=== PATIENT | male | born 1990 | race Two or more races ===

== ENCOUNTER 2016-08-22 17:16 | Emergency (ER) | payer MEDICAID, OTHER ==
[~2016-08-22] VITALS: Ht 170.2 cm; Wt 83.0 kg
[2016-08-22 17:31] VITALS: BP 140/88
[2016-08-22] MEDS ORDERED: cefTRIAXone W LIDOCAINE 1 GM IM IM ONE (19:15)
[2016-08-22] MEDS ORDERED: cefTRIAXone SOD 1,000 MG VL IM ONE (19:30)
[2016-08-22] MEDS ORDERED: LIDOCAINE 1% HCL (LOCAL ANESTH.) INJ 20ML MDV XX ONE (19:30)
== END 2016-08-22 19:46 | disposition home or self-care (01) ==
LOC: ER 17:22
DX: R36.9 Urethral discharge, unspecified (principal); F17.210 Nicotine dependence, cigarettes, uncomplicated
CPT/HCPCS: 96372; 99283; J2001; J0696

== ENCOUNTER 2016-10-01 18:23 | Emergency (ER) | payer MEDICAID ==
[~2016-10-01] VITALS: Ht 180.3 cm; Wt 86.2 kg
[2016-10-01 19:59] LABS: Urine Bilirubin Negative (Negative); Urine Blood TRACE /uL (Negative); Urine Color Yellow (Yellow); Urine Glucose Normal (Normal); Urine Ketone Negative (Negative); Urine Mucus FEW (None Seen); Urine Nitrite Negative (Negative); Urine RBC 2 /hpf (0 - 3); Urine Urobilinogen Normal (Negative); Urine pH 5.5 (5.0-8.0)
[2016-10-01 21:34] VITALS: BP 146/97
== END 2016-10-01 22:01 | disposition home or self-care (01) ==
LOC: ER 18:26
DX: A64 Unspecified sexually transmitted disease (principal)
CPT/HCPCS: 81001

== ENCOUNTER 2016-10-03 17:17 | Emergency (ER) | payer MEDICAID ==
[~2016-10-03] VITALS: Ht 182.9 cm; Wt 82.6 kg
[2016-10-03 18:55] VITALS: BP 147/89
[2016-10-03] MEDS ORDERED: cefTRIAXone SOD 1,000 MG VL ONE (19:06)
[2016-10-03] MEDS ORDERED: cefTRIAXone SOD 1,000 MG VL IM ONE (19:15)
== END 2016-10-03 19:40 | disposition home or self-care (01) ==
LOC: ER 17:20
DX: N34.2 Other urethritis (principal); F17.210 Nicotine dependence, cigarettes, uncomplicated; Z90.89 Acquired absence of other organs
CPT/HCPCS: 96372; 99283; J0696

== ENCOUNTER → 2019-07-14 | Emergency (ER) | payer MEDICAID ==
[~2019-07-14] VITALS: Ht 182.9 cm; Wt 86.2 kg
[~2019-07-14] MED LIST: EPINEPHrine HCL 1 MG/1 ML AMP SC ONE; SODIUM CHLORIDE 0.9% 1,000 ML IV ONE; diphenhdrAMINE HCL 50 MG/1 ML VL IV ONE; methylPREDNISolone SOD SUCC 125 MG/2 ML VL IV ONE
[2019-07-14 01:58] VITALS: BP 136/62
== END | disposition home or self-care (01) ==
LOC: ER 00:34
DX: T78.40XA Allergy, unspecified, initial encounter (principal); X58.XXXA Exposure to other specified factors, initial encounter
CPT/HCPCS: 93005; 96372; 96374; 96375; 99284; J0171; J1200; J2930; J7030

== ENCOUNTER 2019-07-18 14:54 | Emergency (ER) | payer MEDICAID ==
[~2019-07-18] VITALS: Ht 182.9 cm; Wt 86.2 kg
[2019-07-18] MEDS ORDERED: methylPREDNISolone SOD SUCC 125 MG/2 ML VL IM ONE (17:30)
[2019-07-18 17:48] VITALS: BP 141/85
== END 2019-07-18 18:11 | disposition home or self-care (01) ==
LOC: ER 14:54
DX: T78.40XA Allergy, unspecified, initial encounter (principal); X58.XXXA Exposure to other specified factors, initial encounter
CPT/HCPCS: 96372; 99283; J2930

== ENCOUNTER 2023-05-27 21:55 | Emergency (ER) | payer MEDICAID, OTHER ==
[~2023-05-27] VITALS: Ht 180.3 cm; Wt 192.0 kg
[2023-05-28] MEDS: IBUPROFEN 800 MG TAB PO ONE (00:27)
[2023-05-28] MEDS: ACETAMINOPHEN/CODEINE#3 (300/30mg) TAB PO ONE (00:34)
[2023-05-28] MEDS: ONDANSETRON ODT 4 MG TAB PO ONE (00:35)
[2023-05-28] MEDS ORDERED: HYDR-4902 PO (01:18)
[2023-05-28] MEDS ORDERED: CIPR1SUS8 OT (01:18)
[2023-05-28 02:10] VITALS: TEMP 98.9; O2SAT 96
[2023-05-28] MEDS: cefTRIAXone SOD 1,000 MG VL IM ONE (02:14)
[2023-05-28] MEDS: MORPHINE SULFATE INJ 2 MG/ml SYRG IM ONE (02:16)
[2023-05-28 02:45] VITALS: BP 145/77; PULSE 85; RESP 16
== END 2023-05-28 02:53 | disposition home or self-care (01) ==
LOC: ER 21:55
DX: H66.91 Otitis media, unspecified, right ear (principal); F17.210 Nicotine dependence, cigarettes, uncomplicated; Z90.89 Acquired absence of other organs; Z79.899 Other long term (current) drug therapy
CPT/HCPCS: 96372; 99284; J0696; J2270; Q0162; 93005

== ENCOUNTER 2023-06-11 15:16 | Emergency (ER) | payer OTHER ==
[~2023-06-11] VITALS: Ht 180.3 cm; Wt 85.2 kg
[~2023-06-11 15:16] MED LIST changes: +CIPR1SUS8 OT; -EPINEPHrine HCL 1 MG/1 ML AMP SC ONE; +HYDR-4902 PO; -SODIUM CHLORIDE 0.9% 1,000 ML IV ONE; -diphenhdrAMINE HCL 50 MG/1 ML VL IV ONE; -methylPREDNISolone SOD SUCC 125 MG/2 ML VL IV ONE
[2023-06-11] MEDS: KETOROLAC TROMETH 60MG/2ML VIAL IM ONE (19:56)
[2023-06-11] MEDS: ONDANSETRON ODT 4 MG TAB PO ONE (19:57)
[2023-06-11 20:06] LABS: Basophils # (auto) 0 10 ^3/uL (0-0.2); Basophils % (auto) 0.6 % (0.0-2.0); Eosinophils # (auto) 0.2 10 ^3/uL (0-0.8); Eosinophils % (auto) 2.4 % (0.0-7.0); Hematocrit 43.4 % (41.0-53.0); Hemoglobin 14.9 g/dL (13.5-17.5); Lymphocytes % (auto) 35.4 % (10.0-50.0); Mean Corpuscular Hgb Conc. 34.4 g/dL (32.0-36.0); Mean Corpuscular Volume 87.4 fL (80.0-100.0); Monocytes # (auto) 0.6 10 ^3/uL (0-1.3); Neutrophils # (auto) 4.7 10 ^3/uL (1.6-8.6); Neutrophils % (auto) 54.6 % (37.0-80.0); Nucleated Red Blood Cells % 0.1 %; Red Blood Cells 4.96 10^6/uL (4.5-5.90); White Blood Cell 8.6 10^3/uL (4.4-10.8)
[2023-06-11 20:15] LABS: Chloride 104 mmol/L (98-107); Potassium 3.9 mmol/L (3.5-5.1); Sodium 137 mmol/L (136-145)
[2023-06-11 20:16] LABS: Anion Gap 8 (5-15); Carbon Dioxide 25 mmol/L (20-30)
[2023-06-11 20:17] LABS: Calcium 9.6 mg/dL (8.5-10.1)
[2023-06-11 20:21] LABS: BUN/Creatinine Ratio 14.5 (10.0-20.0); Blood Urea Nitrogen 12 mg/dL (9-23); Glucose 94 mg/dL (74-106)
[2023-06-11] MEDS ORDERED: IBUP-1456 PO (21:51)
[2023-06-11] MEDS ORDERED: PRED20TA2 PO (21:51)
[2023-06-11] MEDS ORDERED: CLIN1CAP70 PO (21:51)
[2023-06-11] MEDS ORDERED: ZOFR4T PO (21:52)
[2023-06-11] MEDS: cefTRIAXone SOD 1,000 MG VL IM ONE (22:00)
[2023-06-11 22:56] LABS: COVID19 ANTIGEN SOFIA FIA NEGATIVE (NEGATIVE); Rapid Influenza A Negative (Negative); Rapid Influenza B Negative (Negative)
[2023-06-11 23:10] VITALS: BP 110/62; PULSE 98; RESP 20; TEMP 98.6; O2SAT 98
== END 2023-06-11 23:35 | disposition home or self-care (01) ==
LOC: ER 15:16
DX: H66.91 Otitis media, unspecified, right ear (principal); R11.0 Nausea; R51.9 Headache, unspecified; G40.909 Epilepsy, unspecified, not intractable, without status epilepticus; F17.210 Nicotine dependence, cigarettes, uncomplicated; Z98.890 Other specified postprocedural states; Z79.899 Other long term (current) drug therapy; Z20.822 Contact with and (suspected) exposure to COVID-19
CPT/HCPCS: 36415; 70450; 70486; 80048; 85025; 87426; 87804; 96372; 99285; J0696; J1885; Q0162

== ENCOUNTER 2024-10-25 12:36 | Emergency (ER) | payer OTHER ==
[~2024-10-25] VITALS: Ht 180.3 cm; Wt 94.8 kg
[~2024-10-25 12:36] MED LIST changes: +CLIN1CAP70 PO; +IBUP-1456 PO; +PRED20TA2 PO; +ZOFR4T PO
[2024-10-25 12:38] VITALS: TEMP 97.9
--- NOTE | 2024-10-25 13:01 | ED.PDOC ---
HPI (NEURO) HPI Comments 33 year old male with a past medical history of seizures presents to the emergency department with a chief complaint of headache onset 1 week. Patient states he has been experiencing headache for the past week, has taken Ibuprofen 800 mg with intermittent relief. He noticed he is also experiencing generalized weakness, lethargic. Last seizure episode was about 1 month ago. No other symptoms or modifying factors present at this time. Denies fever, chills, night sweats Denies persistent nausea Denies vomiting Denies photophobia, phonophobia Denies head trauma around the time headache started Denies vision/hearing changes Denies focal loss of strength/sensation or changes in speech Chief Complaint: Headache Time Seen by MD: 12:55 Primary Care Provider: UNK Reviewed Notes: Medications, Allergies Information Source: Patient Mode of Arrival: Ambulatory Severity: Moderate Headache Severity: Moderate Timing: Weeks Duration: Since onset Prehospital treatment: None Headache Quality: Throbbing Headache Location: Temporal Weakness Location: Generalized Onset: At rest Circumstances: Spontaneous Symptoms: Other History of: Seizure Disorder Modifying factors: Nothing Associated Signs and Symptoms: Headache, Weakness Past Medical History PAST MEDICAL HISTORY: Seizures Surgical History: Tonsillectomy Family History Family History: Unknown Social History Smoker: Cigarettes, Less Than 1 Pack/Day Alcohol: Denies ETOH Use Drugs: Denies Drug Use Lives In: Home All Other Systems: Reviewed and Negative Physical Exam General Appearance: No Apparent Distress, Normal HEENT: Normal ENT Inspection, Pharynx Normal, TMs Normal Neck: Full Range of Motion, Non-Tender, Normal, Normal Inspection Respiratory: Chest Non-Tender, Lungs Clear, No Accessory Muscle Use, No Resp iratory Distress, Normal Breath Sounds Cardiovascular: No Edema, No JVD, No Murmur, No Gallop, Normal Peripheral Pulses, Regular Rate/Rhythm Breast Exam: Deferred Gastrointestinal: No Organomegaly, Non Tender, No Pulsatile Mass, Normal Bowel Sounds, Soft Genitalia: Deferred Pelvic: Deferred Rectal: Deferred Extremities: No calf tenderness, Normal capillary refill, Normal inspection, Normal range of motion, Non-tender, No pedal edema Musculoskeletal : Apperance: Normal Neurologic: Alert, legal records manager II-XII nml as Tested, No Motor Deficits, Normal Affect, Normal Mood, No Sensory Deficits Cerebellar Function: Normal Reflexes: Normal Skin: Dry, Normal Color, Warm Lymphatic: No Adenopathy Was a procedure done? Was a procedure done?: No X-Ray, Labs, Meds, VS Vital Signs Date Time Temp Pulse Resp B/P (MAP) Pulse Ox O2 Delivery O2 Flow Rate FiO2 10/25/24 15:13 66 18 131/82 (98) 96 10/25/24 12:38 97.9 95 16 135/91 99 97.9 Lab Test 10/25/24 14:44 10/25/24 13:29 Range/Units Urine Color Yellow Yellow Urine Clarity Clear Clear Urine pH 5.5 5.0-9.0 Urine Specific Shannon 1.023 1.001-1.035 Urine Protein Negative Negative Urine Ketones Negative Negative Urine Blood Negative Negative /uL Urine Nitrite Negative Negative Urine Bilirubin Negative Negative Urine Urobilinogen Normal Negative mg/dL Urine Leukocyte Esterase Negative Negative /uL Urine RBC 3 0 - 3 /hpf Urine Microscopic WBC < 1 0-3 /HPF Urine Squamous Epithelial Cells Few <5 /hpf Urine Bacteria None seen None Seen /hpf Urine Mucus Few None Seen Urine Glucose Normal Normal mg/dL White Blood Count 6.9 4.4-10.8 10^3/uL Red Blood Count 4.94 4.5-5.90 10^6/uL Hemoglobin 14.8 13.5-17.5 g/dL Hematocrit 43.1 41.0-53.0 % Mean Corpuscular Volume 87.3 80.0-100.0 fL Mean Corpuscular Hemoglobin 29.9 28.0-32.0 pg Mean Corpuscular Hemoglobin Concent 34.3 32.0-36.0 g/dL Red Cell Distribution Width 13.0 11.8-14.3 % Platelet Count 309 140-450 10^3/uL Mean Platelet Volume 8.4 6.9-10.8 fL Neutrophils (%) (Auto) 49.0 37.0-80.0 % Lymphocytes (%) (Auto) 39.4 10.0-50.0 % Monocytes (%) (Auto) 6.9 0.0-12.0 % Eosinophils (%) (Auto) 3.9 0.0-7.0 % Basophils (%) (Auto) 0.8 0.0-2.0 % Neutrophils # (Auto) 3.4 1.6-8.6 10 ^3/uL Lymphocytes # (Auto) 2.7 0.4-5.4 10 ^3/uL Monocytes # (Auto) 0.5 0-1.3 10 ^3/uL Eosinophils # (Auto) 0.3 0-0.8 10 ^3/uL Basophils # (Auto) 0.1 0-0.2 10 ^3/uL Nucleated Red Blood Cells 0.2 % Sodium Level 141 136-145 mmol/L Potassium Level 4.2 3.5-5.1 mmol/L Chloride Level 103 98-107 mmol/L Carbon Dioxide Level 30 20-31 mmol/L Anion Gap 8 5-15 Blood Urea Nitrogen 9 9-23 mg/dL Creatinine 0.78 0.700-1.30 mg/dL Glomerular Filtration Rate Calc 120 >90 mL/min BUN/Creatinine Ratio 11.5 10.0-20.0 Serum Glucose 85 74-106 mg/dL Calcium Level 9.3 8.7-10.4 mg/dL Current Medications Medications (Trade) Dose Ordered Sig/Avery Route Start Time Stop Time Status Last Admin Sodium Chloride 1,000 ml @ 1,000 mls/hr Q1H ONCE IV 10/25/24 13:00 10/25/24 13:59 DC 10/25/24 13:20 Acetaminophen (Tylenol Tablet Or Capsule) 1,000 mg ONCE ONCE PO 10/25/24 13:00 10/25/24 13:01 DC 10/25/24 13:20 X-Ray, Labs, Meds, VS Comment 33 year old male with a past medical history of seizures presents to the emergency department with a chief complaint of headache onset 1 week. Patient arrives alert and oriented, ABC's intact, afebrile, vital signs stable, saturating well in room air Peripheral IV insertion+ labs were ordered. CBC was ordered to exclude anemia, blood loss, or infection. BMP was ordered to exclude electrolyte abnormalities, renal failure, dehydration, hyperglycemia. Urinalysis was ordered to rule out UTI or hematuria. Patient was given: Tylenol 1g PO. Tolerated medications with no adverse reaction. Additional MDM Review of External, Non-ED records: External records reviewed. Discussion with independent historian (EMS, family) history obtained from the patient/parents (if applicable) at bedside Chronic conditions affecting care: None Social determinants of health affecting care: None I considered escalation of care to admission for this patient, however given the reassuring workup, the patient is safe for outpatient management. On reevaluation, patient had symptomatic improvement. Patient is stable for discharge at this time. External notes reviewed. Test results and diagnostic imaging interpreted. All diagnostic findings, discharge care, education and instructions provided Follow-up with PCP in 2 to 3 days Patient verbalized understanding and agreed to treatment plan Vital signs stable, afebrile, no acute distress noted Patient ambulatory with strong steady gait Advised to return precautions for any new or worsening symptoms, return to ER immediately for re-evaluation Patient is aware that the purpose of this visit was for an acute medical emergency requiring emergent stabilization. Chronic conditions, including malignancies have not been ruled out. Patient is instructed to follow up with PCP as directed and discharge instructions for continued care and workup. If unable to arrange follow-up, patient is to return to the emergency department for reassessment. Patient (parent or legal guardian if applicable) was given verbal and written discharge instructions and acknowledges understanding. Time of 1ST Reevaluation: 13:25 Reevaluation 1ST: Improved Patient Education/Counseling: Diagnosis, Treatment Family Education/Counseling: No Family Present Departure 1 Departure Time of Disposition: 15:07 Impression: Primary Impression: Headache Qualified Codes: R51.9 - Headache, unspecified Disposition: 01 HOME / SELF CARE / HOMELESS Condition: Stable e-Prescriptions Ibuprofen (Ibuprofen) 600 Mg Tab 1 TAB PO TIDPRN PRN for 10 Days, #30 TAB 0 Refills Prov: JANEL PEARSON NP 10/25/24 Discharged With: Self Critical Care Note Critical Care Time?: No Stability Stability form required: No Heart Score Heart Score: Heart Score Response (Comments) Value History N/A 0 EKG N/A 0 Age N/A 0 Risk Factors N/A 0 Troponin N/A 0 Total 0 I personally scribed for JANEL PEARSON NP ([email or web address]) on 10/25/24 at 13:01. Electronically submitted by Crissy Wade ([email or web address]). I personally scribed for JANEL PEARSON NP ([email or web address]) on 10/25/24 at 13:12. Electronically submitted by Crissy Wade ([email or web address]). JANEL PEARSON NP Oct 25, 2024 13:01
[2024-10-25] MEDS: ACETAMINOPHEN 500 MG TAB or CAP PO ONE (13:20)
[2024-10-25] MEDS: SODIUM CHLORIDE 0.9% 1,000 ML IV ONE (13:20)
[2024-10-25 14:03] LABS: Chloride 103 mmol/L (98-107); Potassium 4.2 mmol/L (3.5-5.1); Sodium 141 mmol/L (136-145)
[2024-10-25 14:04] LABS: Anion Gap 8 (5-15); Calcium 9.3 mg/dL (8.7-10.4); Carbon Dioxide 30 mmol/L (20-31)
[2024-10-25 14:09] LABS: BUN/Creatinine Ratio 11.5 (10.0-20.0); Blood Urea Nitrogen 9 mg/dL (9-23); Glucose 85 mg/dL (74-106)
[2024-10-25 14:32] LABS: Hematocrit 43.1 % (41.0-53.0); Hemoglobin 14.8 g/dL (13.5-17.5); Mean Corpuscular Hemoglobin 29.9 pg (28.0-32.0); Mean Corpuscular Volume 87.3 fL (80.0-100.0); Nucleated Red Blood Cells % 0.2 %
[2024-10-25 14:55] LABS: Urine Protein, UAD Negative (Negative)
[2024-10-25] MEDS ORDERED: IBUP-1454 PO (15:07)
[2024-10-25 15:13] VITALS: BP 131/82; PULSE 66; RESP 18; O2SAT 96
== END 2024-10-25 15:24 | disposition home or self-care (01) ==
LOC: ER 12:36
DX: R51.9 Headache, unspecified (principal); F17.210 Nicotine dependence, cigarettes, uncomplicated; Z90.89 Acquired absence of other organs
CPT/HCPCS: 36415; 80048; 81001; 85025; 96360; 99283; J7030

== ENCOUNTER 2025-02-10 07:43 | Emergency (ER) | payer OTHER ==
[~2025-02-10] VITALS: Ht 180.3 cm; Wt 94.8 kg
[~2025-02-10 07:43] MED LIST changes: +IBUP-1454 PO
--- NOTE | 2025-02-10 08:01 | ED.PDOC ---
HPI Allergic reaction HPI Comments 34 y/o M, presents to the ED for CC of allergic reaction. Patient states, he has been experiencing reoccurring facial swelling with associated urticaria and pruritus onset, 01/27/25. Patient relays, symptoms commence in the evenings and early mornings, then developing angioedema. Patient endorses, taking Benadryl at 0700 this morning (02/10/25) with no change in symptoms. Patient denies change in diet, hygienic products, detergents, shortness of breath, or dysphagia. Chief Complaint: Allergic Reaction Time Seen by MD: 08:00 Primary Care Provider: UNK Reviewed Notes: Nurses Notes, Medications, Allergies Allergies: Coded Allergies: NO KNOWN ALLERGIES (Unverified , 08/22/16) Home Meds Active Scripts Ibuprofen (Ibuprofen) 600 Mg Tab, 1 TAB PO TIDPRN PRN for 10 Days, #30 TAB 0 Refills Prov:JANEL PEARSON SOCIAL SCIENCE MANAGER 10/25/24 Ondansetron Odt 4MG Tab (ZOFRAN PO) 4 Mg Tb, 4 MG PO Q8HPRN, #14 TAB 0 Refills ODT TAB-DISSOLVE IN MOUTH, THEN SWALLOW Prov:MILI OLIVARES 06/11/23 Prednisone (Prednisone) 20 Mg Tab, 20 MG PO BID for 5 Days, #10 TAB 0 Refills Prov:MILI OLIVARES 06/11/23 Ibuprofen (Ibuprofen) 800 Mg Tab, 1 TAB PO TID PRN, #30 TAB 0 Refills Prov:MILI OLIVARES 06/11/23 Clindamycin Hcl (Clindamycin Hcl) 300 Mg Cap, 1 CAP PO TID for 7 Days, #21 CAP 0 Refills Prov:MILI OLIVARES 06/11/23 Hydrocodone-Acetaminophen (Hydrocodone Bitartrate/AC 5-325 mg) 1 Tab Tab, 1 TAB PO QIDP, #10 TAB 0 Refills Prov:MILI OLIVARES 05/28/23 Ciprofloxacin-Dexamethasone (Ciprofloxacin/Dexamethaso 0.3-0.1 %) 1 Itzel Itzel, 4 DROP OT BID for 7 Days, #1 BOTTLE 0 Refills Prov:MILI OLIVARES 05/28/23 Information Source: Patient Mode of Arrival: Ambulatory Severity: Moderate Rash: Moderate SOB: None Difficulty swallowing: None Pruritus: Moderate Timing: Days Duration: Intermittent Prehospital treatment: None Location: Arm, Face, Leg, Lips Exposed to: Unknown Developed: Facial Swelling History of: Prior Similar Episodes Modyifying Factors: None Associated Sign and Symptoms: None Past Medical History PAST MEDICAL HISTORY: Seizures Surgical History: Tonsillectomy Family History Family History: Unknown Social History Smoker: Cigarettes, Less Than 1 Pack/Day Alcohol: Denies ETOH Use Drugs: Denies Drug Use Lives In: Home Constitutional: denies: chills, diaphoresis, fatigue, fever, malaise, sweats, weakness, others EENTM: reports: others (facial swelling); denies: blurred vision, double vision, ear bleeding, ear discharge, ear drainage, ear pain, ear ringing, eye pain, eye redness, hearing loss, mouth pain, mouth swelling, nasal discharge, nose bleeding, nose congestion, nose pain, photophobia, tearing, throat pain, throat swelling, voice changes Respiratory: denies: cough, hemoptysis, orthopnea, SOB at rest, shortness of breath, SOB with excertion, stridor, wheezing, others Cardiovascular: denies: chest pain, dizzy spells, diaphoresis, Dyspnea on exertion, edema, irregular heart beat, left arm pain, lightheadedness, palpitations, PND, syncope, others Gastrointestinal: denies: abdomen distended, abdominal pain, blood streaked bowels, constipated, diarrhea, dysphagia, difficulty swallowing, hematemesis, melena, nausea, poor appetite, poor fluid intake, rectal bleeding, rectal pain, vomiting, others Genitourinary: denies: burning, dysuria, flank pain, frequency, hematuria, incontinence, penile discharge, penile sore, pain, testicle pain, testicle swelling, urgency, others Neurological: denies: dizziness, fainting, headache, left sided numbness, left sided weakness, numbness, paresthesia, pre-existing deficit, right sided numbness, right sided weakness, seizure, speech problems, tingling, tremors, weakness, others Musculoskeletal: denies: back pain, gout, joint pain, joint swelling, muscle pain, muscle stiffness, neck pain, others Integumetry: denies: bruises, change in color, change in hair/nails, dryness, laceration, lesions, lumps, rash, wounds, others Allergic/Immunocompromised: denies: Difficulty Healing, Frequent Infections, Hives, Itching, others Hematologic/Lymphatic: denies: anemia, blood clots, easy bleeding, easy bruising, swollen glands, others Endocrine: denies: excessive hunger, excessive sweating, excessive thirst, excessive urination, flushing, intolerance to cold, intolerance to heat, unexplained weight gain, unexplained weight loss, others Psychiatric: denies: anxiety, bipolar disorder, depression, hopeless, panic disorder, schizophrenia, sleepless, suicidal, others All Other Systems: Reviewed and Negative Physical Exam General Appearance: No Apparent Distress, Normal, Other (angioedema) HEENT: Normal ENT Inspection, Pharynx Normal Neck: Full Range of Motion, Non-Tender, Normal, Normal Inspection Respiratory: Chest Non-Tender, Lungs Clear, No Accessory Muscle Use, No Respiratory Distress, Normal Breath Sounds Cardiovascular: No Edema, No Murmur, No Gallop, Normal Peripheral Pulses, Regular Rate/Rhythm Breast Exam: Deferred Gastrointestinal: No Organomegaly, Non Tender, No Pulsatile Mass, Normal Bowel Sounds, Soft Genitalia: Deferred Pelvic: Deferred Rectal: Deferred Extremities: No calf tenderness, Normal capillary refill, Normal inspection, Normal range of motion, Non-tender, No pedal edema Musculoskeletal : Apperance: Normal Neurologic: Alert, nutritionist public health II-XII nml as Tested, No Motor Deficits, Normal Affect, Normal Mood, No Sensory Deficits Cerebellar Function: Normal Reflexes: Normal Skin: Dry, Normal Color, Warm, Other (diffuse urticaria) Lymphatic: No Adenopathy Was a procedure done? Was a procedure done?: No Differential diagnosis (all) Differential Diagnosis: Angioedema, Contact Dermatitis, Urticaria X-Ray, Labs, Meds, VS Vital Signs Date Time Temp Pulse Resp B/P (MAP) Pulse Ox O2 Delivery O2 Flow Rate FiO2 02/10/25 08:26 98.1 86 17 133/88 (103) 99 98.1 02/10/25 08:26 86 17 99 Room Air 02/10/25 07:52 98.8 73 18 145/93 96 98.8 Current Medications Medications (Trade) Dose Ordered Sig/Avery Route Start Time Stop Time Status Last Admin Methylprednisolone Sodium Succinate (Solu Medrol) 125 mg ONCE ONCE IV 02/10/25 08:15 02/10/25 08:16 DC 02/10/25 08:29 Famotidine (Pepcid Injection) 20 mg ONCE ONCE IV 02/10/25 08:15 02/10/25 08:16 DC 02/10/25 08:29 Sodium Chloride 1,000 ml @ 1,000 mls/hr Q1H ONCE IV 02/10/25 08:15 02/10/25 09:14 DC 02/10/25 08:29 Time of 1ST Reevaluation: 08:30 Reevaluation 1ST: Unchanged Patient Education/Counseling: Diagnosis, Treatment Family Education/Counseling: No Family Present SEPSIS Sepsis Screen Date sepsis recognized/suspect: Feb 10, 2025 Time Sepsis recognized/suspect: 754 Recent Procedure: No On Antibiotic Therapy: No Respiratory Rate >20: No Heart Rate >90: No Temp<36 C (96.8 F) or >38.3 C: No SBP <90 or MAP <65 mmHG: No New Acute Mental Status Change: No Is the patient on CPAP, BIPAP,: No Vital Signs Date Time Temp Pulse Resp B/P (MAP) Pulse Ox O2 Delivery O2 Flow Rate FiO2 02/10/25 08:26 98.1 86 17 133/88 (103) 99 98.1 02/10/25 08:26 86 17 99 Room Air 02/10/25 07:52 98.8 73 18 145/93 96 98.8 Medications Medications Dose Ordered Sig/Avery Route Start Time Stop Time Status Last Admin Dose Admin Famotidine 20 mg ONCE ONCE IV 02/10/25 08:15 02/10/25 08:16 DC 02/10/25 08:29 Methylprednisolone Sodium Succinate 125 mg ONCE ONCE IV 02/10/25 08:15 02/10/25 08:16 DC 02/10/25 08:29 Sodium Chloride 1,000 ml @ 1,000 mls/hr Q1H ONCE IV 02/10/25 08:15 02/10/25 09:14 DC 02/10/25 08:29 Departure 1 Departure Time of Disposition: 10:36 (Patient likely with a allergic reaction. Patient's symptoms appear to have resolved we will discharge patient home with outpatient follow up) Impression: Primary Impression: Allergic reaction Disposition: HOME / SELF CARE / HOMELESS Condition: Stable Additional Instructions: You had an allergic reaction. You received medications in the ER. You were prescribed steroids and an epinephrine pain. Please use as directed. You should follow up with your regular doctor within one week to ensure you are doing better. You may benefit from an appointment with an Human Resources Benefits Specialist. If your symptoms worsen, or you have any other concerns then please return to the ER. e-Prescriptions Epinephrine (Anaphylaxis) (Auvi-Q) 0.1 Mg/0.1 Ml Inj 0.1 MG IJ O PRN for 1 Day, #1 INJ Prov: SHER GRACIA MD 02/10/25 Prednisone (Prednisone) 20 Mg Tab 40 MG PO DAILY for 5 Days, #10 MG Prov: SHER GRACIA MD 02/10/25 Discharged With: Self Critical Care Note Critical Care Time?: No Stability Stability form required: No Heart Score Heart Score: Heart Score Response (Comments) Value History N/A 0 EKG N/A 0 Age N/A 0 Risk Factors N/A 0 Troponin N/A 0 Total 0 I personally scribed for SHER GRACIA MD ([email or web address]) on 02/10/25 at 08:01. Electronically submitted by Mayuri Mujica ([email or web address]). I personally scribed for SHER GRACIA MD ([email or web address]) on 02/10/25 at 08:18. Electronically submitted by Mayuri Mujica ([email or web address]). I personally scribed for SHER GRACIA MD ([email or web address]) on 02/10/25 at 08:19. Electronically submitted by Mayuri Mujica ([email or web address]). SHER GRACIA MD Feb 10, 2025 08:01
[2025-02-10 08:26] VITALS: BP 133/88; PULSE 86; RESP 17; TEMP 98.1; O2SAT 99
[2025-02-10] MEDS: FAMOTIDINE (10MG/ML) 2ML VL IV ONE (08:29)
[2025-02-10] MEDS: SODIUM CHLORIDE 0.9% 1,000 ML IV ONE (08:29)
[2025-02-10] MEDS: methylPREDNISolone SOD SUCC 125 MG/2 ML VL IV ONE (08:29)
[2025-02-10] MEDS ORDERED: PRED20TA2 PO (10:37)
[2025-02-10] MEDS ORDERED: EPIN0.1I11 IJ (10:37)
== END 2025-02-10 10:51 | disposition home or self-care (01) ==
LOC: ER 07:43
DX: L50.9 Urticaria, unspecified (principal); T78.40XA Allergy, unspecified, initial encounter; Z90.89 Acquired absence of other organs; X58.XXXA Exposure to other specified factors, initial encounter
CPT/HCPCS: 96361; 96374; 96375; 99284; J2919; J3490; J7030